=== PATIENT | female | born 1990 | race Caucasian/White ===

== ENCOUNTER 2016-11-11 08:07 | Emergency (ER) | payer SELFPAY ==
[~2016-11-11] VITALS: Ht 154.9 cm; Wt 64.0 kg
[2016-11-11 08:08] VITALS: BP 134/87; PULSE 107; RESP 18; TEMP 98.7; O2SAT 99
[2016-11-11] MEDS ORDERED: GABA300C5 PO (08:38)
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
[2016-11-11 09:06] LABS: BASOPHIL # 0.1 TH/MM3 (0-0.2); BASOPHIL % 0.7 % (0.0-2.0); EOSINOPHIL # 0.1 TH/MM3 (0-0.4); HEMATOCRIT 37.7 % (35.0-46.0); HEMO FLAGS DIFF FINAL; LYMPH % 15.6 % (9.0-44.0); LYMPHOCYTE # 1.3 TH/MM3 (1.0-4.8); MEAN CELL VOLUME 88.9 FL (80.0-100.0); MEAN CORPUSCULAR HEMOGLOBIN 29.9 PG (27.0-34.0); MEAN CORPUSCULAR HGB CONC 33.7 % (32.0-36.0); MONO % 10.1 % (0.0-8.0); NEUT % 72.6 % (16.0-70.0); PLATELET COUNT 267 TH/MM3 (150-450); RED BLOOD COUNT 4.24 MIL/MM3 (4.00-5.30); RED CELL DISTRIBUTION WIDTH 14.2 % (11.6-17.2); WHITE BLOOD COUNT 8.2 TH/MM3 (4.0-11.0)
[2016-11-11 09:21] LABS: ANION GAP 10 MEQ/L (5-15); BICARBONATE 24.3 MEQ/L (21.0-32.0); BLOOD UREA NITROGEN 20 MG/DL (7-18); CHLORIDE 106 MEQ/L (98-107); GLOMERULAR FILTRATION RATE 106 ML/MIN (>89); POTASSIUM 4.1 MEQ/L (3.5-5.1); SODIUM (NA) 140 MEQ/L (136-145)
[2016-11-11 09:26] LABS: BETA HCG QUANT LESS THAN 1 MIU/ML (0-5)
[2016-11-11] MEDS ORDERED: ZOFR4TAB PO (11:06)
[2016-11-11] MEDS ORDERED: PERC5TAB12 PO (11:06)
== END 2016-11-11 11:55 | disposition home or self-care (01) ==
LOC: NEPC 08:07
DX: R10.2 Pelvic and perineal pain (principal); N93.9 Abnormal uterine and vaginal bleeding, unspecified; R11.2 Nausea with vomiting, unspecified
CPT/HCPCS: 80048; 84702; 85025; 99284

== ENCOUNTER 2017-05-08 18:52 | Emergency (ER) | payer MEDICAID ==
[~2017-05-08] VITALS: Ht 154.9 cm; Wt 65.0 kg
[~2017-05-08 18:52] MED LIST: GABA300C5 PO; PERC5TAB12 PO; ZOFR4TAB PO
[2017-05-08 18:55] VITALS: BP 132/69; PULSE 128; RESP 16; TEMP 98; O2SAT 98
[2017-05-08] MEDS ORDERED: SODIUM CHLOR 0.9% 1000 ML INJ 1,000 ML IV SCH (20:32)
[2017-05-08 20:36] VITALS: BP_SYST 109; BP_SYST 98; BP_SYST 99; BP_DIAS 70; BP_DIAS 73; BP_DIAS 81; RESP 16
[2017-05-08] MEDS ORDERED: XANA1TAB2 PO (20:36)
[2017-05-08] MEDS ORDERED: CELE20TA PO (20:36)
[2017-05-08] MEDS ORDERED: LEVE500 PO (20:36)
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
[2017-05-08] MEDS ORDERED: ONDANSETRON HCL 4 MG/2 ML VIAL IVP ONE (20:45)
--- NOTE | 2017-05-08 21:33 | RADRPT ---
EXAM DATE/TIME: 05/08/2017 21:08 [facility] COMPARISON: No previous studies available for comparison. INDICATIONS : Left arm swelling. MEDICAL HISTORY : Seizures. Atrial fibrillation. SURGICAL HISTORY : left hip replacement. ENCOUNTER: Initial ACUITY: 1 day PAIN SCORE: 10/10 LOCATION: Left arm. FINDINGS: There is spontaneous flow documented in the brachial, basilic, cephalic, axillary, and subclavian vei ns. The vessels are compressible and augmentation response is documented. No filling defects are se en. The flow is phasic with respiration. Direction of flow in the jugular vein is caudal. CONCLUSION: No DVT is identified in the left upper extremity. Van Schaefer MD on May 08, 2017 at 21:32 Board Certified Radiologist. This report was verified electronically.
[2017-05-08 21:57] LABS: AUTOMATED NEUTROPHIL # 12.4 TH/MM3 (1.8-7.7); BASOPHIL % 0.2 % (0.0-2.0); EOSINOPHIL % 0.1 % (0.0-4.0); HEMATOCRIT 38.9 % (35.0-46.0); HEMO FLAGS DIFF FINAL; LYMPH % 9.6 % (9.0-44.0); LYMPHOCYTE # 1.4 TH/MM3 (1.0-4.8); MEAN CELL VOLUME 90.6 FL (80.0-100.0); MEAN CORPUSCULAR HEMOGLOBIN 30.8 PG (27.0-34.0); MONO % 4.7 % (0.0-8.0); NEUT % 85.4 % (16.0-70.0); PLATELET COUNT 311 TH/MM3 (150-450); RED BLOOD COUNT 4.29 MIL/MM3 (4.00-5.30); RED CELL DISTRIBUTION WIDTH 14.8 % (11.6-17.2); WHITE BLOOD COUNT 14.5 TH/MM3 (4.0-11.0)
[2017-05-08 22:11] LABS: ANION GAP 8 MEQ/L (5-15); AST (GOT) 17 U/L (15-37); BICARBONATE 24.7 MEQ/L (21.0-32.0); BLOOD UREA NITROGEN 17 MG/DL (7-18); CHLORIDE 104 MEQ/L (98-107); GLOMERULAR FILTRATION RATE 100 ML/MIN (>89); POTASSIUM 3.8 MEQ/L (3.5-5.1); SODIUM (NA) 137 MEQ/L (136-145)
[2017-05-08 22:12] LABS: ALT (GPT) 23 U/L (10-53)
[2017-05-08 22:14] LABS: ALKALINE PHOSPHATASE 63 U/L (45-117); TOTAL BILIRUBIN ADULT 0.3 MG/DL (0.2-1.0)
[2017-05-08 22:16] LABS: CREATINE KINASE 67 U/L (26-192)
[2017-05-08 23:30] LABS: BLOOD, URINE NEG (NEG); COMMENT (UR) CULT NOT INDICATED; CULTURE IF INDICATED CULT NOT INDICATED; GLUCOSE,URINE NEG (NEG); KETONE, URINE 10 mg/dL (NEG); MUCUS URINE MOD /lpf (OCC); NITRITE,URINE NEG (NEG); PH, URINE 5.5 (5.0-8.5); SQUAMOUS EPITHELIAL CELL URINE 1 /hpf (0-5); URINE COLOR YELLOW (YELLW/STRAW)
[2017-05-09] MEDS ORDERED: SODIUM CHLOR 0.9% 1000 ML INJ 1,000 ML IV ONE (00:15)
== END 2017-05-09 00:15 | disposition left against medical advice (07) ==
LOC: NEPC 18:52 → NETRI 05-09 00:15
DX: K52.9 Noninfective gastroenteritis and colitis, unspecified (principal); M79.602 Pain in left arm
CPT/HCPCS: 80053; 81001; 82550; 83690; 84703; 85025; 93971; 96361; 96374; 99285; J2405; J7030

== ENCOUNTER 2017-11-04 19:14 | Emergency (ER) | payer MEDICAID ==
[~2017-11-04] VITALS: Ht 154.9 cm; Wt 62.0 kg
[~2017-11-04 19:14] MED LIST changes: +CELE20TA PO; -GABA300C5 PO; +LEVE500 PO; -PERC5TAB12 PO; +XANA1TAB2 PO; -ZOFR4TAB PO
[2017-11-04 19:25] VITALS: BP 137/91; PULSE 92; RESP 18; TEMP 98.4; O2SAT 96
== END 2017-11-04 21:42 | disposition left against medical advice (07) ==
LOC: NEPD 19:14
DX: M25.552 Pain in left hip (principal)
CPT/HCPCS: 99281